=== PATIENT | female | born 1955 | race Caucasian/White ===

== ENCOUNTER 2016-12-02 09:41 | Emergency (ER) | payer MEDICAID ==
[~2016-12-02] VITALS: Ht 177.8 cm; Wt 68.0 kg
--- NOTE | 2016-12-02 09:41 | NUR ---
PT CALLED TO TRIAGE, PT NOT IN WAITING ROOM
--- NOTE | 2016-12-02 10:00 | NUR ---
PT CALLED IN TO TRIAGE , NO RESPONSE. PT IS NOT IN WAITING ROOM. WILL TRY AGAIN LATER.
--- NOTE | 2016-12-02 10:20 | NUR ---
PT CALLED IN TO TRIAGE , NO RESPONSE. PT IS NOT IN WAITING ROOM. WILL TRY AGAIN LATER.
--- NOTE | 2016-12-02 10:33 | NUR ---
PT CO NAUSEA, VOMITING, DIARRHEA S/P TAKING RANDOM UNLNOWM PILL PO ON SATURDAY @ 1929. TAKES METHADONE 40MG PO DAILY. VSS. AWAITING MD ORDER
[2016-12-02] MEDS ORDERED: IV NS 0.9% 1,000 ML BAG IV ONE (11:00)
[2016-12-02 11:32] LABS: BASOPHILS # (AUTO) 0.2 /CMM (0.0-0.2); EOSINOPHILS % (AUTO) 0.1 % (0.0-6.0); HEMATOCRIT 47 % (33-45); HEMOGLOBIN 16.1 g/dL (11.5-14.8); LYMPHOCYTES # (AUTO) 1.3 /CMM (0.8-4.8); LYMPHOCYTES % (AUTO) 16.8 % (20.0-44.0); MEAN CORPUSCULAR HEMOGLOBIN 30 PG (26.0-33.0); MEAN CORPUSCULAR HGB CONC 34 g/dl (31.0-36.0); MEAN CORPUSCULAR VOLUME 87 fL (82-100); MONOCYTES # (AUTO) 0.5 /CMM (0.1-1.30); MONOCYTES % (AUTO) 6.9 % (2.0-12.0); NEUTROPHILS # (AUTO) 5.7 /CMM (1.8-8.9); NEUTROPHILS % (AUTO) 74.2 % (43.0-81.0); PLATELET COUNT (AUTO) 218 /CMM (150-450); RDW COEFFICIENT OF VARIATION 12.3 (11.5-15.0); RED BLOOD CELL COUNT(AUTO) 5.44 MIL/uL (4.0-5.2); WHITE BLOOD COUNT (AUTO) 7.7 K/uL (4.3-11.0)
[2016-12-02] MEDS ORDERED: IV NS 0.9% 1,000 ML ONE (11:36)
[2016-12-02] MEDS ORDERED: IV SET PRIMARY PUMP SET 1 EA INFUS.SET MC ONE (11:36)
[2016-12-02 11:49] LABS: ALBUMIN 4.2 g/dL (3.4-5.0); BILIRUBIN,DIRECT 0.3 mg/dL (0.0-0.2); BILIRUBIN,TOTAL 5.3 mg/dL (0.2-1.0); CALCIUM, SERUM 9.9 mg/dL (8.5-10.1); CREATININE 1.2 mg/dL (0.6-1.3); INR 1.02 (0.87-1.13); POTASSIUM 2.7 mmol/L (3.5-5.1); PROTHROMBIN TIME 10.6 SECS (9.5-12.7)
[2016-12-02] MEDS ORDERED: POTASSIUM CHLORIDE 20 MEQ TAB.PRT.SR PO ONE ×2 (12:00→12:30)
[2016-12-02 12:30] LABS: APPEARANCE,URINE Clear (CLEAR); BLOOD, URINE Moderate Ery/uL (NEGATIVE); COLOR,URINE Yellow (YELLOW); KETONES,URINE 80 (NEGATIVE); LEUKOCYTE ESTERASE ,URINE Negative (NEGATIVE); NITRITE, URINE Negative (NEGATIVE); PH,URINE 5.5 (5.0-8.0); PROTEIN,URINE 100 mg/dl (NEGATIVE); UGLUCOSE Negative (NEGATIVE)
--- NOTE | 2016-12-02 12:30 | NUR ---
URINE SAMPLE COLLECTED SENT TO LAB
[2016-12-02 12:36] LABS: BILIRUBIN,URINE MODERATE (NEGATIVE)
[2016-12-02 12:54] LABS: ADD URINE CULTURE NO; BACTERIA,URINE Few /HPF (None Seen); SQUAMOUS EPITHELIAL CELL,UR Moderate /HPF (None Seen)
--- NOTE | 2016-12-02 13:26 | NUR ---
[id number] [facility]
--- NOTE | 2016-12-02 13:40 | NUR ---
Patient discharged to home in stable condition. Written and verbal after care instructions given. Patient verbalizes understanding of instruction.
[2016-12-02 13:41] VITALS: BP 122/73
--- NOTE | 2016-12-02 13:41 | NUR ---
IV removed. Catheter intact and site benign. Pressure and 4x4 applied to site. No bleeding noted.
== END 2016-12-02 14:11 | disposition home or self-care (01) ==
LOC: ER 09:44
DX: R11.2 Nausea with vomiting, unspecified (principal); E86.0 Dehydration; E87.1 Hypo-osmolality and hyponatremia; E87.6 Hypokalemia; B18.2 Chronic viral hepatitis C; B19.20 Unspecified viral hepatitis C without hepatic coma; E80.6 Other disorders of bilirubin metabolism; R74.0 Nonspecific elevation of levels of transaminase and lactic acid dehydrogenase [LDH]
CPT/HCPCS: 36415; 80048-TC; 80076-TC; 81000-TC; 85025-TC; 85730-TC; A4606; J7030; Z7610

== ENCOUNTER 2020-11-18 16:26 | Emergency (ER) | payer MEDICAID ==
[~2020-11-18] VITALS: Ht 177.8 cm; Wt 54.9 kg
--- NOTE | 2020-11-18 16:30 | NUR ---
THE PATIENT IS BIBS FOR C/O R HAND PAIN W/ WOUND STATES I HAVE STAPH INFECTION. RATES PAIN 6/10. RESPIRATION REGULAR AND UNLABORED. WILL CONTINUE TO MONITOR THE PATIENT.
--- NOTE | 2020-11-18 17:18 | NUR ---
[employer] M[employer]PAR[employer] AT BEDSIDE FOR EVAL.
--- NOTE | 2020-11-18 17:36 | NUR ---
IV LINE STARTED BLOOD DRAWN AND SENT TO LAB.
[2020-11-18] MEDS: IV NS 0.9% 1,000 ML BAG IV ONE (17:39)
[2020-11-18 17:51] LABS: BASOPHILS % (AUTO) 0.5 % (0.0-2.0); EOSINOPHILS % (AUTO) 4.8 % (0.0-6.0); HEMATOCRIT 41 % (33-45); HEMOGLOBIN 13.5 g/dL (11.5-14.8); LYMPHOCYTES # (AUTO) 1.4 /CMM (0.8-4.8); LYMPHOCYTES % (AUTO) 19.4 % (20.0-44.0); MEAN CORPUSCULAR HGB CONC 33 g/dl (31.0-36.0); MEAN CORPUSCULAR VOLUME 89 fL (82-100); MONOCYTES # (AUTO) 0.5 /CMM (0.1-1.30); MONOCYTES % (AUTO) 6.2 % (2.0-12.0); NEUTROPHILS # (AUTO) 5.1 /CMM (1.8-8.9); NEUTROPHILS % (AUTO) 69.1 % (43.0-81.0); PLATELET COUNT (AUTO) 365 /CMM (150-450); RED BLOOD CELL COUNT(AUTO) 4.57 MIL/uL (4.0-5.2); WHITE BLOOD COUNT (AUTO) 7.3 K/uL (4.3-11.0)
[2020-11-18 18:19] LABS: ALANINE AMINOTRANSFERASE 14 U/L (12-78); ALBUMIN 3.3 g/dL (3.4-5.0); ALKALINE PHOSPHATASE 139 U/L (46-116); ASPARTATE AMINOTRANSFERASE 25 U/L (15-37); BILIRUBIN,TOTAL 0.4 mg/dL (0.2-1.0); CALCIUM, SERUM 9.5 mg/dL (8.5-10.1); CARBON DIOXIDE 28 mmol/L (21-32); CHLORIDE 102 mmol/L (98-107); CREATININE 0.8 mg/dL (0.6-1.3); GLUCOSE 83 mg/dL (74-106); SODIUM SERUM 139 mmol/L (136-145); TOTAL PROTEIN, SERUM 8.7 g/dL (6.4-8.2); UREA NITROGEN, BLOOD 19 mg/dL (7-18)
[2020-11-18] MEDS ORDERED: MUPI22OI2 TP (18:50)
[2020-11-18] MEDS ORDERED: DOXY100C41 PO (18:50)
[2020-11-18] MEDS: DOXYCYCLINE HYCLATE (100 MG) 100 MG TABLET PO ONE (18:57)
[2020-11-18] MEDS ORDERED: DOXYCYCLINE HYCLATE (100 MG) 100 MG TABLET ONE (19:06)
[2020-11-18] MEDS ORDERED: MUPIROCIN OINT 2% 22 GM TUBE ONE (19:06)
[2020-11-18] MEDS: MUPIROCIN OINT 2% 22 GM TUBE TP ONE (19:13)
--- NOTE | 2020-11-18 19:27 | NUR ---
Patient discharged to home in stable condition. Written and verbal after care instructions given. Patient verbalizes understanding of instruction. The patient left ER in stable condition.
[2020-11-18 19:28] VITALS: BP 126/80
== END 2020-11-18 19:28 | disposition home or self-care (01) ==
LOC: ER 17:08
DX: L03.113 Cellulitis of right upper limb (principal); R00.0 Tachycardia, unspecified; Z59.0 Homelessness; Z86.19 Personal history of other infectious and parasitic diseases; G89.29 Other chronic pain; Z98.890 Other specified postprocedural states; Z79.899 Other long term (current) drug therapy
CPT/HCPCS: 36415; 71045; 80048; 80076; 83605; 84484; 85025; 85730; 87040 ×2; 93005; 96360; 99285; J7030